=== PATIENT | male | born 2000 | race Caucasian/White ===

== ENCOUNTER 2019-01-02 11:59 | Emergency (ER) | payer OTHER ==
[2019-01-02] MEDS ORDERED: Sodium Chloride 0.9% 500 ML IV ONE (12:27)
--- NOTE | 2019-01-02 12:37 | EDM.PDOC ---
ED HPI GENERAL MEDICAL PROBLEM - General Chief Complaint: Eye Problems Stated Complaint: LT EYE DEBRIE Time Seen by Provider: 01/02/19 11:59 Source of Information: Reports: Patient, Other (Coworker) History Limitations: Reports: No Limitations - History of Present Illness INITIAL COMMENTS - FREE TEXT/NARRATIVE: 18 y.o.w.m in prev healthy condition, came to the ed with his coworker after Sand dust of aluminium dust went into his left eye at work. No direct trauma. Pt has extreme left eye pain with severe photophobia. EOMI. DEL. Decrease vison left eye. No other acute med issues. BP 138/60 RR 14 Pulse ox 99% on RA Pulse 89 Temp 36.8 visual acuity: Left 20/50 right eye 20/30 (not corrected) Onset Date: 01/02/19 Onset Time: 11:45 Duration: Minutes: Location: Reports: Face Quality: Reports: Burning, Dull Severity: Moderate Improves with: Reports: Rest Worsens with: Reports: Movement Context: Reports: Trauma (Dust inti left eye) Associated Symptoms: Reports: No Other Symptoms left eye Pain Score (Numeric/FACES): 4 - Related Data Allergies Allergy/AdvReac Type Severity Reaction Status Date / Time No Known Allergies Allergy Verified 01/02/19 12:14 Home Meds: Home Meds Acetaminophen/HYDROcodone [[place]land 325-5 MG] 1 tab PO Q6H PRN #6 tablet 01/02/19 [ Rx] FLUoxetine HCl [Prozac] 20 mg PO DAILY 01/02/19 [History] ED ROS GENERAL - Review of Systems Review Of Systems: See Below Constitutional: Reports: No Symptoms HEENT: Reports: Eye Pain Respiratory: Reports: No Symptoms Cardiovascular: Reports: No Symptoms Endocrine: Reports: No Symptoms GI/Abdominal: Reports: No Symptoms : Reports: No Symptoms Musculoskeletal: Reports: No Symptoms Skin: Reports: No Symptoms Neurological: Reports: No Symptoms Psychiatric: Reports: No Symptoms Hematologic/Lymphatic: Reports: No Symptoms Immunologic: Reports: No Symptoms ED EXAM GENERAL W FULL EYE - Physical Exam Exam: See Below Exam Limited By: No Limitations General Appearance: Alert, WD/WN, Moderate Distress Eye Exam: Left Eye: Corneal Abrasion, Bilateral Eye: EOMI Visual Acuity (R) 20/: 50 Visual Acuity (L) 20/: 30 With Correction: No Eyelids: Left: Foreign Body (durt vs metal dust), Lid Everted for Exam (NO FB seen), Bilateral: Normal Appearance Conjunctiva & Sclera: Left: Conjunctival Edema, Foreign Body, Injected Cornea Exam: Left: Corneal Abrasion Extraocular Movements: Bilateral: Intact Pupillary Size: Left: 4 mm Pupillary Reaction: Left: Brisk Anterior Chamber: Bilateral: Normal Appearance Ears: Normal External Exam Nose: Normal Inspection Throat/Mouth: Normal Inspection Head: Atraumatic, Normocephalic Neck: Normal Inspection, Supple, Non-Tender Respiratory/Chest: No Respiratory Distress, Lungs Clear, Normal Breath Sounds Cardiovascular: Normal Peripheral Pulses GI/Abdominal: Normal Bowel Sounds (Male) Exam: Deferred (Female) Exam: Deferred Rectal (Males) Exam: Deferred Rectal (Female) Exam: Deferred Back Exam: Normal Inspection, Full Range of Motion Extremities: Normal Inspection, Normal Range of Motion, Non-Tender, Normal Capillary Refill Neurological: Alert, Oriented, CN II-XII Intact, Normal Cognition, Normal Gait Psychiatric: Normal Affect, Normal Mood Skin Exam: Warm, Dry, Intact, Normal Color, No Rash Lymphatic: No Adenopathy Course - Vital Signs Text/Narrative:: 18 y.o.w.m in prev healthy condition, came to the ed with his coworker after Sand dust of aluminium dust went into his left eye at work. No direct trauma. Pt has extreme left eye pain with severe photophobia. EOMI. DEL. Decrease vison left eye. No other acute med issues. BP 138/60 RR 14 Pulse ox 99% on RA Pulse 89 Temp 36.8 visual acuity: Left 20/50 right eye 20/30 (not corrected) Imaging/labs: Not indicated. Procedure: Left eye: Eladio applied and Fluorescein applied which showed taylor material at his left cornea, conjunctivae left eye. Left Eye was irrigarted with NS 500 cc using a Thomas lens. Reexam: severe abrasions mainly throughout. Impression: Corneal abrasions, moderate Tx: Eye irrigation, Neosporin ointment, Vicodin as a prescription Reexam: Pt was pain free on D/C Plan: D/C with instructions 13.00 pm Consultation: Eye clinic: [facility], [facility]: Neosporine ointment for 24 hours , if not improved , needs to be seen by on Eye doctor Last Recorded V/S: Last Vital Signs Temp 36.6 C 01/02/19 12:01 Pulse 76 01/02/19 12:01 Resp 14 01/02/19 12:01 BP 138/69 01/02/19 12:01 Pulse Ox 99 01/02/19 12:01 - Orders/Labs/Meds Meds: Medications Discontinued Medications Generic Name Dose Route Start Last Admin Trade Name Freq PRN Reason Stop Dose Admin Sodium Chloride 500 mls @ 500 mls/hr 01/02/19 12:27 01/02/19 12:25 Normal Saline IV 01/02/19 13:26 500 mls/hr .BOLUS ONE Administration Neomycin/Polymyxin/Bacitracin 0.1 gm 01/02/19 14:00 01/02/19 13:07 Neosporin Ophth Oint EYELF 1 applic TID PRICILA Administration Sulfacetamide 3 ml 01/02/19 13:00 01/02/19 12:54 Bleph-10 Ophth Soln EYELF 3 drop Q3H PRICILA Administration Departure - Departure Time of Disposition: 13:07 Disposition: Home, Self-Care 01 Condition: Good Clinical Impression: Infected corneal abrasion Qualifiers: Encounter type: initial encounter Laterality: left Qualified Code(s): S05.02XA - Injury of conjunctiva and corneal abrasion without foreign body, left eye, initial encounter - Discharge Information Prescriptions: Acetaminophen/HYDROcodone [[place] 325-5 MG] 1 tab PO Q6H PRN #6 tablet PRN Reason: for severe pain only Instructions: Acetaminophen; Hydrocodone tablets or capsules, Corneal Abrasion , [id number] Referrals: PCP,Not In Area [Primary Care Provider] - Forms: ED Department Discharge, ED Return to Work/School Form Additional Instructions: Please apply one layer of Neosporin ointment into your left eye three times a days of 1-2 days. Please follow up with your eye doctor if the pain/discomfort of your left eye has not completely subsided in the next 24 hours. Please come back to the ED if your symptoms get worse acutely.
[2019-01-02] MEDS ORDERED: Sulfacetamide 10% Ophth Soln 15 ML Bottle EYELF SCH (13:00)
[2019-01-02] MEDS ORDERED: Bacitracin/Neomycin/Polymyxin B Ophth Oint 3.5 GM Tube EYELF SCH (14:00)
== END 2019-01-02 13:34 | disposition home or self-care (01) ==
LOC: FB.ED 11:59
DX: S05.02XA Injury of conjunctiva and corneal abrasion without foreign body, left eye, initial encounter (principal); Z79.899 Other long term (current) drug therapy; X58.XXXA Exposure to other specified factors, initial encounter
CPT/HCPCS: 99283; A9270; J7040